=== PATIENT | female | born 1985 | race African-American/Black ===

== ENCOUNTER 2017-07-08 12:43 | Emergency (ER) | payer MEDICAID, OTHER ==
[~2017-07-08] VITALS: Ht 165.1 cm; Wt 65.0 kg
[2017-07-08 13:17] LABS: BASOPHILS % 0.8 % (0.0-2.0); HEMATOCRIT. 36.2 % (36.0-48.0); HEMOGLOBIN. 12.2 g/dL (12.0-16.0); LYMPHOCYTES % 24.7 % (20.0-50.0); MEAN CORPUSCULAR HEMOGLOBIN 27.9 pg (28.0-32.0); MEAN PLATELET VOLUME 7.6 fl (7.4-10.4); MONOCYTES % 6.3 % (2.0-8.0); NEUTROPHILS % 67.2 % (40.0-76.0); PLATELET 302 x1000/uL (130-400); RED BLOOD CELL COUNT 4.36 mill/uL (4.2-5.4); RED CELL DISTRIBUTION WIDTH 13.5 % (11.6-14.6)
[2017-07-08 13:18] LABS: CLARITY URINE CLOUDY (CLEAR); COLOR URINE YELLOW (YELLOW); KETONES URINE TRACE (NEGATIVE); LEUKOCYTE ESTERASE URINE NEGATIVE (NEGATIVE); NITRITE URINE NEGATIVE (NEGATIVE); OCCULT BLOOD URINE 3+ (NEGATIVE); PROTEIN URINE NEGATIVE (NEGATIVE); SPECIFIC GRAVITY URINE 1.033 (1.005-1.030); UROBILINOGEN URINE 0.2 E.U./dL (0.2-1.0)
[2017-07-08 13:28] LABS: CHLORIDE 101 mEq/L (98-107)
[2017-07-08 13:46] LABS: B-HCG QUANTITATIVE 56769 mIU/mL (<3)
[2017-07-08 15:37] VITALS: BP 110/70
== END 2017-07-08 17:39 | disposition home or self-care (01) ==
LOC: ER 14:30
DX: O20.0 Threatened abortion (principal); O23.41 Unspecified infection of urinary tract in pregnancy, first trimester; F12.10 Cannabis abuse, uncomplicated; Z3A.12 12 weeks gestation of pregnancy
CPT/HCPCS: 36415; 76801; 80053; 81003; 81025; 84702; 85025; 86850; 86900; 99285